=== PATIENT | female | born 1935 | race Caucasian/White ===

== ENCOUNTER 2017-05-31 07:08 | Outpatient (CLI) | payer MEDICARE, OTHER ==
[2017-05-31 07:33] LABS: BASOPHILS % 0.8 (0.0-1.5); EOSINOPHILS % 4.7 % (0.0-6.8); MEAN CORPUSCULAR HEMOGLOBIN 30.1 pg (28.0-34.0); MEAN CORPUSCULAR VOLUME 91.6 fl (80.0-100.0); MONOCYTES % 4.1 % (0.0-11.0); NEUTROPHILS # 3.6 # k/uL (1.4-7.7)
[2017-05-31 20:18] LABS: TOTAL PROTEIN 6.4 g/dL (6.0-8.5)
== END 2017-05-31 07:10 ==
LOC: LAB 07:08
DX: M05.79 Rheumatoid arthritis with rheumatoid factor of multiple sites without organ or systems involvement (principal); Z79.52 Long term (current) use of systemic steroids
CPT/HCPCS: 36415; 80053; 85025; 85651; 86140

== ENCOUNTER 2017-06-29 07:18 | Outpatient (CLI) | payer MEDICARE, OTHER ==
[2017-06-29 07:53] LABS: BASOPHILS % 0.9 (0.0-1.5); EOSINOPHILS % 3.5 % (0.0-6.8); MEAN CORPUSCULAR HEMOGLOBIN 28.7 pg (28.0-34.0); MEAN CORPUSCULAR VOLUME 92.1 fl (80.0-100.0); MONOCYTES % 3.4 % (0.0-11.0); NEUTROPHILS # 4.4 # k/uL (1.4-7.7)
[2017-06-29 08:15] LABS: eGFR (African) > 60; eGFR (Non-African) > 60
== END 2017-06-29 07:20 ==
LOC: LAB 07:18
DX: M05.79 Rheumatoid arthritis with rheumatoid factor of multiple sites without organ or systems involvement (principal); Z79.52 Long term (current) use of systemic steroids
CPT/HCPCS: 36415; 80053; 85025; 85651; 86140

== ENCOUNTER → 2017-09-15 | Outpatient (CLI) | payer MEDICARE, OTHER ==
[2017-09-15 07:39] LABS: BASOPHILS % 0.9 (0.0-1.5); EOSINOPHILS % 3.7 % (0.0-6.8); MEAN CORPUSCULAR HEMOGLOBIN 29.1 pg (28.0-34.0); MEAN CORPUSCULAR VOLUME 91.7 fl (80.0-100.0); MONOCYTES % 4.3 % (0.0-11.0); NEUTROPHILS # 4.1 # k/uL (1.4-7.7)
[2017-09-15 08:14] LABS: eGFR (African) > 60; eGFR (Non-African) > 60
== END ==
LOC: LAB 07:20
DX: M35.9 Systemic involvement of connective tissue, unspecified (principal); Z79.899 Other long term (current) drug therapy
CPT/HCPCS: 36415; 80053; 85025; 85651

== ENCOUNTER 2018-02-15 14:10 | Outpatient (CLI) | payer MEDICARE, OTHER ==
[2018-02-15 15:03] LABS: BASOPHILS % 0.5 (0.0-1.5); MEAN CORPUSCULAR HEMOGLOBIN 30.5 pg (28.0-34.0); MEAN CORPUSCULAR VOLUME 95.9 fl (80.0-100.0); MONOCYTES % 3.5 % (0.0-11.0); NEUTROPHILS # 6.1 # k/uL (1.4-7.7)
[2018-02-15 15:23] LABS: eGFR (African) > 60; eGFR (Non-African) > 60
== END 2018-02-15 14:11 ==
LOC: LAB 14:10
DX: M15.9 Polyosteoarthritis, unspecified (principal); Z79.899 Other long term (current) drug therapy; M35.9 Systemic involvement of connective tissue, unspecified
CPT/HCPCS: 36415; 80053; 85025

== ENCOUNTER 2019-05-10 07:38 | Outpatient (CLI) | payer MEDICARE, OTHER ==
[2019-05-22 14:43] LABS: eGFR (Non-African) > 60
[2019-05-22 14:44] LABS: BASOPHILS % 0.5 % (0.0-1.5); NEUTROPHILS # 4.5 # k/uL (1.4-7.7)
== END 2019-05-10 07:43 | disposition home or self-care (01) ==
LOC: LAB 07:38
DX: M05.79 Rheumatoid arthritis with rheumatoid factor of multiple sites without organ or systems involvement (principal)
CPT/HCPCS: 36415; 80053; 85025; 85651; 86140

== ENCOUNTER 2019-09-02 08:27 | Outpatient (CLI) | payer MEDICARE, OTHER ==
[2019-09-12 08:00] LABS: eGFR (Non-African) > 60
[2019-09-12 08:01] LABS: BASOPHILS % 0.3 % (0.0-1.5); NEUTROPHILS # 5.9 # k/uL (1.4-7.7)
== END 2019-09-02 09:40 ==
LOC: LAB 08:27
PROVIDERS: ATTEND Internal Medicine
DX: M05.79 Rheumatoid arthritis with rheumatoid factor of multiple sites without organ or systems involvement (principal); Z79.899 Other long term (current) drug therapy
CPT/HCPCS: 36415; 80053; 85025; 85651